=== PATIENT | female | born 1985 | race Caucasian/White ===

== ENCOUNTER 2020-07-25 15:16 | Emergency (ER) | payer MEDICAID, SELFPAY ==
[2020-07-25 15:18] VITALS: BP 121/92; PULSE 111; RESP 20; TEMP 36.7; O2SAT 998; BMI 39.5
--- NOTE | 2020-07-25 15:34 | PC.NURSE ---
PT HAVING INCREASED LOWER BACK PAIN FOR 2 DAYS AFTER TRYING SOME NEW BACK STRETCHING KNEE TO CHEST TECHNIQUES. PT STATES SHE HAD A CORTIZONE SHOT 2 WEEKS AGO.
[2020-07-25] MEDS: Lidocaine 4 % Patch ADH..PATCH 1 PATCH TRANSDERMA (16:11)
[2020-07-25] MEDS: Cyclobenzaprine HCl 10 MG TABLET PO (16:11)
[2020-07-25] MEDS: Ketorolac Tromethamine 30 MG/ML VIAL IM (16:12)
--- NOTE | 2020-07-25 16:48 | ED_ITS ---
HPI - Back Pain/Injury General Chief Complaint: Back Pain/Injury Stated Complaint: back pain Time Seen by Provider: 07/25/20 16:01 Source: patient Mode of arrival: ambulatory Limitations: no limitations History of Present Illness HPI Narrative: 34-year-old female with history of obesity and history of chronic low states the past 2 days before she feels that existed back pain is most in right lower paraspinous muscle region the lumbar that this similar to her previous episode. Denies any GI symptoms has tried some warm compresses otherwise no OTC meds. Denies any recent illness, fall, injury, fever, headac he, neck pain, chest pain, shortness of breath, abdominal pain, lower extremity pain or swelling. MD elicited complaint: back pain Pertinent past history: prior back pain Onset (ago): day(s) Timing: intermittent Severity: moderate Similar Symptoms Previously: Yes Quality: aching Location: lumbar spine Radiation: none Exacerbating factors: movement Relieving factors: immobilization Associated symptoms: denies other symptoms Treatments prior to arrival: cold therapy and heat therapy Work related injury: No Related Data Previous Rx's Medication Instructions Recorded cyclobenzaprine 5 mg PO TID PRN #14 tab 07/25/20 ibuprofen 800 mg PO Q8H PRN #14 tab 07/25/20 Allergies Allergy/AdvReac Type Severity Reaction Status Date / Time No Known Allergies Allergy Verified 07/25/20 15:22 [No Known Allergies*] Review of Systems Review of Systems: Constitutional: No Weight loss, No Fever, No Chills, No Night Sweats, No Fatigue, No Malaise ENT/Mouth: No Hearing loss, No Ear Pain, No Nasal Congestion, No Sinus Pain, No Hoarseness, No sore throat, No Rhinorrhea, No Swallowing Difficulty Eyes: No Eye Pain, No Swelling, No Redness, No Foreign Body, No Discharge, No Vision Changes Cardiovascular: No Chest Pain, No SOB, No Dyspnea on Exertion, No Orthopnea, No Edema, No Palpitations Respiratory: No Cough, No Sputum, No Wheezing, No Smoke Exposure, No Dyspnea Gastrointestinal: No Nausea, No Vomiting, No Diarrhea, No Constipation, No abdominal Pain, No Hematochezia, No Melena Genitourinary: no irregular bleeding, No Dysuria, No Urinary Frequency, No Hematuria, No Urinary Incontinence, No Urgency, No Flank Pain, No Urinary Flow Changes, No Hesitancy Musculoskeletal: No joint pain, No Myalgias, No Joint Swelling, + back pain as noted Skin: No Skin Lesions, No rash Neuro: No Weakness, No Numbness, No Paresthesias, No Loss of Consciousness, No Dizziness, No Headache Psych: No Social Issues Heme/Lymph: No Bruising, No Bleeding,No Lymphadenopathy Endocrine: No Polyuria, No Polydipsia, No Temperature Intolerance Yes all other systems are reviewed and are negative [facility] Past Medical History Medical History Anxiety Asthma Back pain Depression Hypothyroid Social History Social History Advance Directives: No Advance Directives Information Provided: No Physical Exam Vital Signs: Vital Signs: Last Vital Signs Temp 98.0 F 07/25/20 15:18 Pulse 111 H 07/25/20 15:18 Resp 19 07/25/20 16:52 BP 121/92 H 07/25/20 15:18 Pulse Ox 998 H 07/25/20 15:18 Body Mass Index 39.5 Reviewed Heart rate was noted to be 111 triage upon arrival to room her heart rate is 82 Also pulse oximeter reading of 98 in triage this is documented in air her actual reading is 99%. Const: Other: Smiling in no acute distress, laying in lateral recumbent position left side. General: cooperative and healthy appearing; No acute distress or intoxicated appearing Nutritional Appearance: average body habitus Orientation/consciousness: patient oriented x3 HENMT: Head: Yes normal to inspection Ears: hearing grossly normal bilaterally Eyes: General: appearance normal, both eyes and all related structures Visual Sanchez: normal visual sanchez by confrontation Neck: Neck: Yes normal visual inspection, No positive Brudzinski's sign, No positive Kernig's sign and No tender Thyroid: Thyroid normal Chest: Chest palpation & inspection: normal inspection of the chest Resp: Effort & Inspection: normal respiratory effort Auscultation: clear to auscultation bilaterally Cardio: Jugular venous distension: no JVD Rate: regular rate Rhythm: regular rhythm Heart sounds: S1 normal heart sound present and S2 normal heart sound present GI: Inspection: Yes normal to inspection Percussion: Yes normal to percussion Auscultation: normal bowel sounds : General: Yes no CVA tenderness Back/Spine/Pelvis: Back: no CVA tenderness Thoracic/Lumbar Spine: paraspinal muscle tenderness (Lumbar paraspinous muscle region, no rash) on the right Skin: General skin exam: no rashes or lesions noted Neuro: General: patient oriented x3 Extrem: General: Yes normal to inspection Course Course Course Narrative: Feels better after IM Toradol, topical lido patch lidocaine and p.o. Flexeril. No low back pain red flags. Will discharge home with short course of NSAIDs, muscle relaxant and close follow-up. Patient feels better now out of bed ambulatory with steady gait. Stable for discharge. Discharge Plan Discharge Clinical Impression: Strain of lumbar region Qualifiers: Encounter type: initial encounter Qualified Code(s): S39.012A - Strain of muscle, fascia and tendon of lower back, initial encounter Patient Disposition: Home, Self-Care Instructions: Low Back Strain (ED) Additional Instructions: Warm compresses Gentle stretching Ibuprofen as prescribed Muscle relaxant as prescribed; do not drink alcohol or drive while taking this medication Return if any concerns or worsening symptoms otherwise Follow home care instructions provided Follow-up with primary care doctor discussed Thank you Prescriptions: New ibuprofen 800 mg tablet 800 mg PO Q8H PRN (Reason: pain) Qty: 14 RF: 0 cyclobenzaprine 5 mg tablet 5 mg PO TID PRN (Reason: muscle spasm) Qty: 14 RF: 0 Referrals: Enoc Calabrese MD [Primary Care Provider] - 1 week Interventions: ED Discharge Assessment Last Done: 07/25/20 16:57 Discharge Date/Time: 07/25/20 16:58
[2020-07-25 16:52] VITALS: RESP 19
== END 2020-07-25 16:58 | disposition home or self-care (01) ==
PROVIDERS: Emergency Provider Emergency Medicine; PCP Pediatrics
DX: S39.012A Strain of muscle, fascia and tendon of lower back, initial encounter (principal); X50.0XXA Overexertion from strenuous movement or load, initial encounter; Y93.B9 Activity, other involving muscle strengthening exercises; Y92.019 Unspecified place in single-family (private) house as the place of occurrence of the external cause; Y99.9 Unspecified external cause status
CPT/HCPCS: 96372; 99284; J1885

== ENCOUNTER → 2022-04-19 12:55 | Outpatient (REF) | payer OTHER, MEDICAID, SELFPAY | LOC: HO.SL 12:55 | PROVIDERS: PCP Family Medicine; Visit Provider Psychiatry & Neurology Neurology | DX: G47.33 Obstructive sleep apnea (adult) (pediatric) (principal) | CPT/HCPCS: 95806 ==

== ENCOUNTER 2023-03-23 10:08 | Emergency (ER) | payer OTHER, SELFPAY ==
--- NOTE | ~2023-03-23 | CT_ITS ---
EXAMINATION: CT ABDOMEN AND PELVIS WITH CONTRAST CLINICAL INFORMATION: Left lower quadrant pain COMPARISON: July 21, 2017 TECHNIQUE: Multidetector volumetric images were obtained from the superior aspect of the liver through the pubic symphysis following administration 85 mL of Omnipaque 350 intravenous contrast. Sagittal and coronal reformatted images were obtained on the technologist's workstation. Oral contrast: No This CT examination was performed using dose optimization techniques as appropriate, variously including the following: *Automated exposure control *Adjustment of mA and/or kV according to patient size (this includes techniques or standardized protocols for targeted exams where dose is matched to indication/reason for exam; i.e. extremities or head) *Use of iterative reconstruction technique DLP: 905 mGy-cm FINDINGS: LUNG BASES: The visualized lung bases are unremarkable. No pleural or pericardial effusion. LIVER, GALLBLADDER, AND BILIARY TREE: The liver is normal in size, shape, and attenuation. No focal solid hepatic lesion or biliary ductal dilatation is present. There are a few 5 mm or smaller low densities within the liver consistent with cysts. The gallbladder appears unremarkable without abnormal filling defects or wall thickening. No pericholecystic fluid. PANCREAS: Unremarkable. No abnormal mass or peripancreatic inflammatory change. SPLEEN: Unremarkable. ADRENAL GLANDS: Unremarkable. KIDNEYS AND URETERS: The kidneys are normal in size, shape, and attenuation. No hydronephrosis or hydroureter seen. No perinephric stranding. There is a 10 x 6 mm nonobstructing calculus adjacent to a scar within the upper pole of the right kidney. This lies approximately 12 cm from the posterior axillary line and has a Hounsfield unit reading of greater than 500. BLADDER: Unremarkable. GASTROINTESTINAL TRACT: No dilated loops of large or small bowel. No free air or free fluid. There is a small hiatal hernia. There is a moderate stool burden within the colon. No pericolonic inflammatory changes seen. The appendix appears unremarkable. ABDOMINAL WALL: No significant hernia is appreciated. LYMPH NODES: No lymphadenopathy appreciated. VASCULAR: No significant abnormality. 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 PELVIC VISCERA: Unremarkable. OSSEOUS STRUCTURES: No suspicious destructive bony lesions identified. CT/CT abdomen pelvis w IV con IMPRESSION: No evidence of obstructive uropathy. No evidence of bowel ileus or obstruction. Moderate colonic stool burden. Fleischner guidelines were followed.
[2023-03-23 10:25] VITALS: BP 133/84; PULSE 65; RESP 16; TEMP 36.6; O2SAT 98; BMI 40.8
[2023-03-23 10:45] LABS: MANUAL DIFF FLAG NO
[2023-03-23 10:46] LABS: Basophils Absolute Auto 0.1 X10*3/uL (0.0-0.2); Basophils Percent Auto 0.6 % (0-2); Eosinophils Absolute Auto 0.1 X10*3/uL (0.0-0.4); Eosinophils Percent Auto 1.2 % (0-4); Hematocrit 45.6 % (37.0-47.0); Hemoglobin 15.3 g/dl (12.0-16.0); Imm Gran Abs Auto 0.03 X10*3/uL (0.00-0.03); Imm Gran Pct Auto 0.3 % (0.0-0.4); Lymphocytes Absolute Auto 3.4 X10*3/uL (1.2-4.9); Lymphocytes Percent Auto 32.8 % (20-40); Mean Corpuscular HGB Conc 33.6 g/dl (31.0-35.0); Mean Corpuscular Hemoglobin 28.8 pg (27.0-33.0); Mean Corpuscular Volume 85.9 fL (80.0-98.0); Mean Platelet Volume 8.7 fL (9.4-12.3); Monocytes Absolute Auto 0.4 X10*3/uL (0.1-1.2); Monocytes Percent Auto 3.9 % (2-11); Neutrophils Absolute Auto 6.4 x10*3/uL (2.0-8.3); Neutrophils Percent Auto 61.2 % (45-73); Platelet Count 433 X10*3/uL (160-400); Red Blood Count 5.31 X10*6/uL (4.20-5.50); Red Cell Distribution Width 13.2 % (11.0-16.0); White Blood Count 10.4 X10*3/uL (4.8-10.8)
[2023-03-23 11:00] LABS: Alanine Aminotransferase 20 U/L (0-31); Albumin Level 4.2 g/dL (3.5-5.0); Alkaline Phosphatase 77 U/L (39-117); Anion Gap 12 (12-20); Aspartate Amino Transferase 14 U/L (5-31); Bilirubin Total 0.4 mg/dL (0.0-1.0); Blood Urea Nitrogen 16 mg/dL (9-16); Calcium 9.1 mg/dL (8.4-10.2); Carbon Dioxide 24 mmol/L (22-29); Chloride 106 mmol/L (96-108); Creatinine Clr Calc Pharmacy 116.8; Estimated Glomerular Filt Rate > 60; Glucose Random 108 mg/dL (60-115); Lipase 19 U/L (8-78); Potassium 3.6 mmol/L (3.3-5.1); Sodium 138 mmol/L (135-145); Total Protein 7.4 g/dL (6.5-8.0)
[2023-03-23 11:17] VITALS: BP 126/81; PULSE 72; RESP 19; TEMP 36.8; O2SAT 97
--- NOTE | 2023-03-23 11:23 | ED_ITS ---
HPI - Abdominal Pain General Chief Complaint: General Medical Stated Complaint: L Side Pain Time Seen by Provider: 03/23/23 11:22 Source: patient Mode of arrival: ambulatory Limitations: no limitations History of Present Illness HPI narrative: 37 yo female no sig PMH other than hysterectomy for DUB here with c/o LLQ pain poor PO intake intermittent chills since . She has never had this before. Stool more thick than usual and different. No recent travel or abx MD elicited complaint: abdominal pain Pertinent past history: none Onset (ago): day(s) (5) Pain Consistency: constant Location: LLQ Severity: moderate Quality: aching Radiation: none Migration to: no migration Exacerbating factors: eating and movement Relieving factors: nothing Associated symptoms: nausea and chills Related Data Previous Rx's Medication Instructions Recorded cyclobenzaprine 5 mg tablet 5 mg PO TID PRN muscle spasm #14 07/25/20 tabs ibuprofen 800 mg tablet 800 mg PO Q8H PRN pain #14 tabs 07/25/20 ondansetron 4 mg disintegrating 4 mg PO Q8H PRN nausea and 03/23/23 tablet vomiting #20 tabs Allergies Allergy/AdvReac Type Severity Reaction Status Date / Time No Known Allergies Allergy Verified 03/23/23 10:25 [No Known Allergies*] Review of Systems Review of Systems Constitutional : No Weight loss, No Fever, No Chills ENT/Mouth : No sore throat, No Rhinorrhea Eyes: No Swelling, No Redness Cardiovascular : No Chest Pain, No SOB, NoEdema Respiratory : No Cough, No Sputum, No Wheezing Gastrointestinal : Positive Nausea, no Vomiting, no Diarrhea, positive abdominal Pain, No Hematochezia, No Melena Genitourinary : No Dysuria, No Urinary Frequency, No Hematuria, No Urgency Musculoskeletal : No joint pain, No Myalgias, No Joint Swelling Skin : No Skin Lesions, No rash Neuro : No Weakness, No Numbness, No Dizziness, No Headache Psych : No Anxiety/Panic, No Depression Heme/Lymph: No Bruising, No Lymphadenopathy Endocrine : No Polyuria, No Polydipsia All other systems reviewed and are negative. [facility] Past Medical History Attestation statement: The following information was validated with the patient. Medical History Back pain Asthma Anxiety Depression Hypothyroid Social History Social History (Updated 03/23/23 @ 11:37 by Adia Guajardo DO) Patient Tobacco Use Status: Never used Tobacco Smoked in Last 30 Days: No Use of substances other than those prescribed or required for medical reasons: No Advance Directives: No Advance Directives Information Provided: No Patient : No Physical Exam ED Vital Signs: Vital Signs - 24 hr 03/23/23 10:25 03/23/23 11:17 03/23/23 13:59 Temperature 97.9 F 98.3 F 98.0 F Pulse Rate 65 72 67 Respiratory Rate 16 19 16 Blood Pressure 133/84 126/81 129/79 Pulse Oximetry 98 97 97 Oxygen Delivery Method Room Air Room Air Room Air BMI result Body Mass Index 40.8 Appearance: Alert. Oriented X3. No acute distress. Eyes: Pupils equal, round and reactive to light. ENT: Pharynx normal. Neck: Normal inspection. Neck supple. CVS: Normal heart rate and rhythm. Pulses normal. Respiratory: No respiratory distress. Breath sounds normal. Abdomen: Soft and moderate LLQ pain no rebound Skin: Skin warm and dry. Normal skin color. Normal skin turgor. Extremities: No lower extremity edema. No calf ttp Neuro: Oriented X 3. No motor deficit. No sensory deficit. Medical Decision Making Medical Decision Making [facility] Narrative: 37 yo female with prior hysterectomy here with LLQ pain and chills poor PO intake since Joel no fevers at this time suspect possible renal colic, diverticulitis, ovarian lesion will obtain labs, UA, hydrate, IV medications, CT scan to assess for pathology. Differential Diagnosis Differential Diagnoses: The differential diagnosis associated with the presentation includes renal colic, diverticulitis, ovarian lesion Admission/Observation Consideration of admission/observation: Escalation of care including admission/observation considered not toxic, labs and UA reassuring - constipation and renal stone (not cause of pain) Lab Data [facility] Lab Attestation statement: I reviewed the patient's lab results. 03/23/23 10:39 03/23/23 10:39 Labs: Lab Results 03/23/23 03/23/23 03/23/23 Range/Units 10:36 10:39 12:56 WBC 10.4 (4.8-10.8) X10*3/uL RBC 5.31 (4.20-5.50) X10*6/uL Hgb 15.3 (12.0-16.0) g/dl Hct 45.6 (37.0-47.0) % MCV 85.9 (80.0-98.0) fL MCH 28.8 (27.0-33.0) pg MCHC 33.6 (31.0-35.0) g/dl RDW 13.2 (11.0-16.0) % Plt Count 433 H (160-400) X10*3/uL MPV 8.7 L (9.4-12.3) fL Immature Gran % (Auto) 0.3 (0.0-0.4) % Neut % (Auto) 61.2 (45-73) % Lymph % (Auto) 32.8 (20-40) % [place] % (Auto) 3.9 (2-11) % Eos % (Auto) 1.2 (0-4) % Baso % (Auto) 0.6 (0-2) % Lymph # (Auto) 3.4 (1.2-4.9) X10*3/uL [place] # (Auto) 0.4 (0.1-1.2) X10*3/uL Eos # (Auto) 0.1 (0.0-0.4) X10*3/uL Baso # (Auto) 0.1 (0.0-0.2) X10*3/uL Abs Immat Gran (auto) 0.03 (0.00-0.03) X10*3/uL Absolute Neuts (auto) 6.4 (2.0-8.3) x10*3/uL Absolute Nucleated RBC 0.000 (0.0-0.012) X10*3/uL Nucleated RBC % (auto) 0.0 (0.0-0.2) /100WBC Sodium 138 (135-145) mmol/L Potassium 3.6 (3.3-5.1) mmol/L Chloride 106 (96-108) mmol/L Carbon Dioxide 24 (22-29) mmol/L Anion Gap 12 (12-20) BUN 16 (9-16) mg/dL Creatinine 0.84 (0.5-1.4) mg/dL Estim Creat Clear Calc 116.8 Estimated GFR > 60 Random Glucose 108 (60-115) mg/dL Calcium 9.1 (8.4-10.2) mg/dL Total Bilirubin 0.4 (0.0-1.0) mg/dL AST 14 (5-31) U/L ALT 20 (0-31) U/L Alkaline Phosphatase 77 (39-117) U/L Total Protein 7.4 (6.5-8.0) g/dL Albumin 4.2 (3.5-5.0) g/dL Lipase 19 (8-78) U/L Beta HCG, Quant < 2 mIU/mL Urine Color Yellow Urine Appearance Clear Urine pH 6.0 (5.0-9.0) Ur Specific [place] 1.015 (1.005-1.025) Urine Protein Negative (Neg-Trace) mg/dL Urine Glucose (UA) Negative (Negative) mg/dL Urine Ketones Negative (Negative) mg/dL Urine Blood Negative (Negative) Urine Nitrite Negative (Negative) Ur Leukocyte Esterase Negative (Negative) Urine Test NEGATIVE (NEGATIVE) Influenza Type A (PCR) NEGATIVE (Negative) Influenza Type B (PCR) NEGATIVE (Negative) RSV RNA Qual (PCR) NEGATIVE (Negative) SARS-CoV-2 RNA (RT-PCR) NEGATIVE (Negative) Independent Interpretation I performed an independent interpretation of an: CT Scan (constipation) Radiology Impression Discussion of test interpretation with radiology: I have reviewed the radiologist's reading. Independent Historian Clinical information obtained from an independent historian. History obtained from or confirmed by: Spouse Prescription Management I considered prescription management with: Other Medications Administered Discontinued Medications Generic Name Dose Route Start Last Admin Trade Name Freq PRN Reason Stop Dose Admin Sodium Chloride 1,000 mls @ 999 mls/hr 03/23/23 11:30 03/23/23 12:05 Ns IV 03/23/23 12:30 999 mls/hr .Q1H1M JORGE Administration Iohexol 100 ml 03/23/23 12:57 03/23/23 12:58 Iohexol 350 Mg/Ml 100 Ml Infus..Btl IV 03/23/23 12:58 85 ml ONCE ONE Administration Ketorolac Tromethamine 15 mg 03/23/23 11:29 03/23/23 12:05 Ketorolac Tromethamine 15 Mg/Ml Vial IVPUSH 03/23/23 11:30 15 mg ONCE ONE Administration Ondansetron HCl 4 mg 03/23/23 11:29 03/23/23 12:05 Ondansetron Hcl 4 Mg/2 Ml Vial IVPUSH 03/23/23 11:30 4 mg ONCE ONE Administration Discharge Plan Discharge Clinical Impression: Calculus, renal Constipation Qualifiers: Constipation type: unspecified constipation type Qualified Code(s): K59.00 - Constipation, unspecified Abdominal pain Qualifiers: Abdominal location: left lower quadrant Qualified Code(s): R10.32 - Left lower quadrant pain Patient Disposition: Home, Self-Care Instructions: Constipation (ED), Kidney Stones (ED), Abdominal Pain (ED) Additional Instructions: your labs and urine are normal, no covid/flu/rsv your CT scan shows moderate constipation it shows incidental finding of R sided kidney stone but this is not the cause of your pain - stay hydrated will refer to urology return for fevers, vomiting, inability to eat or drink or any other concerns. for constipation start on over the counter colace 100mg twice a day for one week, senna 8.6mg nightly for one week, can add miralax one capful daily if no results in 3 days. Prescriptions: New ondansetron 4 mg tablet,disintegrating 4 mg PO Q8H PRN (Reason: nausea and vomiting) Qty: 20 0RF No Action ibuprofen 800 mg tablet 800 mg PO Q8H PRN (Reason: pain) Qty: 14 0RF cyclobenzaprine 5 mg tablet 5 mg PO TID PRN (Reason: muscle spasm) Qty: 14 0RF Referrals: Marcelo Amador MD [Physician] - (call to schedule appointment ) Stand Alone Forms: Work/School Release
[2023-03-23 11:32] LABS: Influenza A PCR NEGATIVE (Negative); Influenza B PCR NEGATIVE (Negative); Resp Syncy Virus RNA Qual PCR NEGATIVE (Negative); SARS COV2 PCR INHOUSE NEGATIVE (Negative)
[2023-03-23] MEDS: ondansetron HCL 4 MG/2 ML VIAL IVPUSH (12:05)
[2023-03-23] MEDS: 0.9 % Sodium Chloride 1,000 ML 999 ML IV (12:05)
[2023-03-23] MEDS: Ketorolac Tromethamine 15 MG/ML VIAL IVPUSH (12:05)
--- NOTE | 2023-03-23 12:07 | PC.NURSE ---
22gIV placed in the right hand - medication administered per provider order. pt awaiting to go to CT at this time. resting comfortably in no apparent distress. no sob/wob noted. respirations even and unlabored. family bedside. call john placed within reach.
[2023-03-23 12:20] LABS: HCG Quantitative < 2 mIU/mL
--- NOTE | 2023-03-23 12:35 | PC.NURSE ---
pt to CT at this time.
[2023-03-23] MEDS: iohexoL 350 MG/ML 100 ML INFUS..BTL IV (12:58)
--- NOTE | 2023-03-23 13:00 | PC.NURSE ---
pt returned from CT at this time. urine obtained/sent to lab. pt verbalizes pain level has now subsided post medication administration. resting comfortably in no apparent distress. pt awaiting results from CT. respirations remain even and unlabored. call john placed within reach.
[2023-03-23 13:08] LABS: Appearance Urine Clear; Color Urine Yellow; Glucose Urine UA Negative (Negative); Leukocyte Esterase Urine Negative (Negative); Nitrite Urine Negative (Negative); Specific Gravity - Urine 1.015 (1.005-1.025); Urine Blood Negative (Negative); Urine Ketones Negative (Negative); Urine Protein Negative (Neg-Trace)
[2023-03-23 13:09] LABS: UPreg QC Valid YES; Urine Pregnancy NEGATIVE (NEGATIVE)
[2023-03-23 13:59] VITALS: BP 129/79; PULSE 67; RESP 16; TEMP 36.7; O2SAT 97
== END 2023-03-23 15:19 | disposition home or self-care (01) ==
PROVIDERS: Emergency Provider Emergency Medicine; PCP Family Medicine
DX: N20.0 Calculus of kidney (principal); K59.00 Constipation, unspecified; R10.32 Left lower quadrant pain; Z20.822 Contact with and (suspected) exposure to COVID-19; Z20.828 Contact with and (suspected) exposure to other viral communicable diseases
CPT/HCPCS: 0241U; 36415; 74177; 80053; 81003; 81025; 83690; 84702; 85025; 96361; 96374; 96375; 99284; J1885; J2405; Q9967

== ENCOUNTER 2025-01-08 12:31 | Outpatient (AMB) | payer SELFPAY ==
[2025-01-08 12:47] VITALS: BP 118/76; PULSE 83; TEMP 36.7; O2SAT 97; BMI 37.3
--- NOTE | 2025-01-08 12:47 | AM.OFFWIN_ITS ---
Intake Vital Signs 01/08/25 12:47 Height 5 ft 6 in Weight 231 lb BMI 37.3 BP 118/76 Blood Pressure Location Lt brachial Position Sitting Pulse 83 Pulse Source Pulse Oximeter Temp 98.0 F Temp Source Oral Pulse Oximetry (%) 97 Intake Visit Reasons: EP Left eye soreness pt has no car Patient Tobacco Use Status: Never used Tobacco Allergies No Known Allergies (No Known Allergies*) Allergy (Verified 01/08/25 12:47) Do you need a note to return to daycare/school/sports/work: Yes HPI HPI Comments History of Present Illness Details 39 y/o Female patient who presents to [facility] with c/o Left eyelid swelling and redness for 3 days now. Reports applying Ice/heat packs and taking Benadrly/Claritin which has helped with swelling going down. Denies eye pain or vision changes. Pt does have h/o Seasonal allergies. [facility] Medical History (Updated 01/08/25 @ 13:45 by Conchita Ludwig NP) Hordeolum externum left upper eyelid Back pain Asthma Anxiety Depression Hypothyroid Social History (Updated 03/23/23 @ 11:37 by Adia Guajardo DO) Patient Tobacco Use Status: Never used Tobacco Review of Systems Const All systems reviewed & are unremarkable except as noted in HPI and below Physical Exam Vital Signs: Last Vital Signs Temp 98.0 F 01/08/25 12:47 Pulse 83 01/08/25 12:47 BP 118/76 01/08/25 12:47 Pulse Ox 97 01/08/25 12:47 BMI result Body Mass Index 37.3 Const General: no acute distress Nutritional Appearance: overweight Orientation/consciousness: patient oriented x3 HEENT Head: Yes normocephalic Ears: external ears normal and TM abnormal with fluid behind the TM bilateral Resp Effort & Inspection: normal respiratory effort Auscultation: clear to auscultation bilaterally Cardio Heart sounds: S1 normal heart sound present and S2 normal heart sound present Neuro General: patient oriented x3, gait normal and moves all extremities Psych Speech and movement: Normal speech and movement present Assessment & Plan Assessment & Plan (1) Hordeolum externum left upper eyelid: Code(s): H00.014 - Hordeolum externum left upper eyelid Plan: Apply warm compresses to the affected eye for 5-10 minutes several times a day to promote drainage and reduce inflammation. Avoid rubbing or touching the stye. Wash your hands frequently and clean your eyelids gently with a mild soap solution. Do not wear makeup or contact lenses until the stye has completely healed. Medications: New ciprofloxacin HCl 0.3% Put 1-2 drops in the affected eye every 2hr up to 8 times per day for 2 days; then 4 times per day for 5 days. 5 mL 0RF H00.014 - Hordeolum externum left upper eyelid Discontinued cyclobenzaprine Discontinued Reason: Patient Completed Course 5 mg PO TID PRN 14 tabs 0RF muscle spasm ibuprofen Discontinued Reason: Patient Completed Course 800 mg PO Q8H PRN 14 tabs 0RF pain ondansetron Discontinued Reason: Patient Completed Course 4 mg PO Q8H PRN 20 tabs 0RF nausea and vomiting Coding Level of Care Code Est Pt Level 4 (26545) Diagnoses Hordeolum externum left upper eyelid H00.014 Time Spent (min) 20
--- OUTSIDE RECORDS SUMMARY | 2025-01-08 15:41 | XMS_ITS | Encounter Summary ---
Author Organization [facility] Address [address] [place] [id number] Phone Care Team Providers Care Cycling Instructor Name Role Phone Nataliya Pelaez Ann AIRPORT UTILITY WORKER Unavailable [phone] Jaki Waterman AIRPORT UTILITY WORKER Unavailable Steve Tuttle HOT MILL OBSERVER Unavailable Doroteo Marina MD Unavailable Will Kapadia MD Unavailable Wiliam Rico MD Unavailable Unavailable Enoc Calabrese MD Unavailable [phone] Enoc Calabrese MD Primary Care Provider [phone] Enoc Calabrese MD Unavailable [phone] Encounter Details Date Type Department Care Team (Late st Contact Info) Description 08/16/2017 Ancillary Orders [facility], X-Ray - [address] [id number] Deonna Glynn, AIRPORT UTILITY WORKER [address] [place] [address] Lumbar radiculopathy Social History Tobacco Use Types Packs/Day Years Used Date Smoking Tobacco: Every Day Cigarettes 0.5 18 Smokeless Tobacco: Never Comments Unknown Sex and Gender Information Value Date Recorded Sex Assigned at Female 2021 8:45 PM EDT Legal Sex Female 9:15 PM EDT Gender Identity Female 2021 8:45 PM EDT Sexual Orientation Straight 2021 8: 45 PM EDT documented as of this encounter Plan of Treatment Not on file documented as of this encounter Results * XR LUMBOSACRAL SPINE 4 OR MORE VIEWS (08/16/2017 4:03 PM EDT) Anatomical Region Laterality Modality L-spine Radiographic Madeleine ging 08/16/2017 4:16 PM EDT Impressions 08/16/2017 4:17 PM EDT Unremarkable evaluation of the lumbar spine. No explanation for low back pain or left leg radiation pain evident. S/S: Chronic low back pain, pain radiating down left leg POS - [id number] Narrative 08/16/2017 4:17 PM EDT COMPARISON: CT abdomen pelvis October 03, 2016 FINDINGS: AP, lateral, both oblique, and coned-down views of the lumbar spine are obtained. There is preservation of disc space height. No compression fracture or subluxation is seen. The pedicles appear intact. On oblique views there are no pars defects seen. The SI joints are unremarkable. There is negligible facet arthropathy. Procedure Note Brice Durant MD - 08/16/2017 COMPARISON: CT abdomen pelvis October 03, 2016 FINDINGS: AP, lateral, both oblique, and coned-down views of the lumbar spine areobtained. There is preservation of disc space height. No compression fracture or subluxation is seen. The pedicles appear intact. On oblique views there are no pars defects seen. The SI joints are unremarkable. There is negligible facet arthropathy. IMPRESSION: Unremarkable evaluation of the lumbar spine. No explanation for low backpain or left leg radiation pain evident. S/S: Chronic low back pain, pain radiating down left leg POS - [id number] Deonna Glynn AIRPORT UTILITY WORKER IMG XR SPINE Fin al Result documented in this encounter Visit Diagnoses Diagnosis Lumbar radiculopathy Thoracic or lumbosacral neuritis or radiculitis, unspecified Lumbar radiculopathy Thoracic or lumbosacral neuritis or radiculitis, unspecified documented in this encounter Additional Health Concerns Infection Onset Date Last Indicated Resolved Time MRSA Comment:Import to add expiration date of 06/11/2021 per Infection Control as part of historical infection status reconciliation 12/12/2007 12/12/2007 06/12/19 22 1:35 AM EDT documented as of this encounter Care Teams Cycling Instructor Relationship Specialty Start Date End Date Enoc Calabrese MD [address] [place] [address], [address] [place] [address] PCP - General 01/08/17 04/21/24 Nataliya Pelaez NP [address] [place] [address] [address] [place] [address] Historical LMR Provider 01/08/17 2 Jaki Waterman, NORMA [address] [place] [address] 2_[place] [address] [email or web address] Historical LMR Provider 01/08/17 04/02/21 Steve Tuttle, HOT MILL OBSERVER [address] [place] [address], [address] [place] [address] Historical LMR Provider 01/08/17 04/02/21 Doroteo Marina MD [address] [place] [address], [address] [place] [address] Historical LMR Provider 01/08/17 04/02/21 Will Kapadia MD [address] [place] [address], [address] [place] [address] [email or web address] Historical LMR Provider 01/08/17 04/02/21 Wiliam Rico MD Historical LMR Provider 01/08/17 04/02/21 Enoc Calabrese MD [address] [place] [address], [address] [place] [address] [email or web address] Historical LMR Provider 01/08/17 Enoc Calabrese MD [address] [place] [address], [address] [place] [address] [email or web address] Insurance Assigned Provider 07/27/18 documented as of this encounter Additional Source Comments The information contained in this document represents components of the legal health record. It is not the complete legal health record.[facility]
--- OUTSIDE RECORDS SUMMARY | 2025-01-08 15:41 | XMS_ITS | Clinical Summary ---
Author Organization [facility] [address] [place] [address] Address [address] [place] [address] Phone Care Team Providers Care Kiln Tester Name Role Phone Jacek Hogan MD Primary Care Pr ovider Allergies Active Allergy Reactions Criticality Noted Date Comments Other 02/04/2021 Seasonal Allergies Medications multivitamin with minerals (HAIR,SKIN AND NAILS ORAL) Take by mouth daily. Active mv-min/iron/fol ic/calcium/vitK (WOMEN'S MULTIVITAMIN ORAL) Take by mouth daily. Active tiZANidine (ZANAFLEX) 4 mg tablet Take 1 Tablet by mouth every evening. 023 Active albuterol HFA (PROAIR HFA ; PROVENTIL HFA ; VENTOLIN HFA) 90 mcg/actuation inhalerIndicati ons:Mild persistent asthma without complication Inhale 2 puffs by mouth every 6 (six) hours if needed for wheezing. 18 g 1 025 Active loratadine (CLARITIN) 10 mg tabletIndicatio ns:Non-seasonal allergic rhinitis due to other allergic trigger Take 1 tablet (10 mg total) by mouth 1 (one) time each day. 90 tablet 1 025 Active ketotifen fumarate (ZADITOR) 0.035 % ophthalmic solutionIndicat ions:Non-season al allergic rhinitis due to other allergic trigger Administer 1 drop into both eyes 2 (two) times a day. 15 mL 1 025 Active fluticasone propion-salmete roL (AIRDUO RESPICLICK) 113-14 mcg/actuation aerosol powdr breath activated inhalerIndicati ons:Mild persistent asthma without complication Inhale 1 puff by mouth 2 (two) times a day. Rinse mouth with water after use to reduce aftertaste and incidence of candidiasis. Do not swallow. 1 each 1 Active levothyroxine (SYNTHROID, LEVOTHROID) 75 mcg tabletIndicatio ns:Hypothyroidi sm due to Montse thyroiditis levothyroxine 75 mcg every morning Sunday through Sunday and 150 mcg on Sundays 102 tablet 1 Active cyanocobalamin (VITAMIN B-12) 1,000 mcg tablet Take 1 Tablet by mouth daily for 180 days. 022 2024 Discontinued levothyroxine (SYNTHROID, LEVOTHROID) 75 mcg tabletIndicatio ns:Hypothyroidi sm due to Montse thyroiditis levothyroxine 75 mcg every morning Sunday through Sunday and 150 mcg on Sundays 94 tablet 025 2024 Discontinued(R eorder) Active Problems Problem Noted Date Diagnosed Date Insomnia 03/09/2023 Allergic rhinitis 09/15/2022 Assessment & Plan (04/21/2024 3:02 PM EST): Continue current medications Orders: loratadine (CLARITIN) 10 mg tablet; Take 1 tablet (10 mg total) by mouth 1 (one) time each day. ketotifen fumarate (ZADITOR) 0.035 % ophthalmic solution; Administer 1 drop into both eyes 2 (two) times a day. Gastroesophageal reflux disease without esophagi tis 09/15/2022 Assessment & Plan (04/21/2024 3:02 PM EST): Continue omeprazole as needed. Symptoms are well-controlled Anxiety and depression 06/16/2022 Degenerative joint disease (DJD) of lumbar spine 06/16/2022 Overview (12/28/2023): L spine MRI 12/27/21: No evidence of demyelinating disease.Degenerative changes, greater at the lower two levels. No evidence of nerve root impingement. No high- grade spinal canal stenosis. Assessment & Plan (04/21/2024 3:02 PM EST): Continue tizanidine PRN ad physiatry follow up defers PCV vaccine or now. Declines COVID vaccine. Received flu vaccine in december Migraine 06/16/2022 Assessment & Plan (04/21/2024 3:02 PM EST): She no longer feels that she needs topiramate for headaches. Headaches are well-controlled with smoking marijuana as needed. She obtains the marijuana from a dispensary Chronic low back pain 03/14/2022 Overview (12/28/2023): Last Assessment & Plan: Patient would likely benefit from breast reduction. Referral to plastic surgery placed today. Asthma 06/13/2021 Assessment & Plan (04/21/2024 3:02 PM EST): Continue air duo and albuterol as needed Orders: albuterol HFA (PROAIR HFA ; PROVENTIL HFA ; VENTOLIN HFA) 90 mcg/actuation inhaler; Inhale 2 puffs by mouth every 6 (six) hours if needed for wheezing. fluticasone propion-salmeteroL (AIRDUO RESPICLICK) 113-14 mcg/actuation aerosol powdr breath activated inhaler; Inhale 1 puff by mouth 2 (two) times a day. Rinse mouth with water after use to reduce aftertaste and incidence of candidiasis. Do not swallow. Hyperlipidemia 06/13/2021 Assessment & Plan (04/21/2024 3:02 PM EST): Will update labs. Orders: Lipid panel with reflex to direct LDL; Future Hemoglobin A1c; Future Hypothyroidism 06/13/2021 Assessment & Plan (04/21/2024 3:02 PM EST): Resume levothyroxine. Return in 6 weeks for blood work. Will adjust levothyroxine dose based on testing Orders: Thyroid stimulating hormone with reflex to free t4 and free t3; Future CBC and differential; Future Comprehensive metabolic panel; Future levothyroxine (SYNTHROID, LEVOTHROID) 75 mcg tablet; levothyroxine 75 mcg every morning Sunday through Sunday and 150 mcg on Sundays Obesity (BMI 30-39.9) 06/13/2021 Assessment & Plan (04/21/2024 3:02 PM EST): Advised to start daily exercise. Continue with dietary changes Will trial Zepbound however it looks like this may cost $400. She will check with her pharmacy. Provided with good Rx card. She will let me know if she is interested in evaluation by weight management for alternative medications Orders: Lipid panel with reflex to direct LDL; Future Hemoglobin A1c; Future tirzepatide, weight loss, (Zepbound) 2.5 mg/0.5 mL injection; Inject 0.5 mL (2.5 mg total) under the skin every 7 (seven) days. 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); Neck fullness; Mild persistent asthma without complication; Seasonal allergic rhinitis, unspecified trigger; Mixed hyperlipidemia; Migraine without status migrainosus, not intractable, unspecified migraine type; Chronic low back pain, unspecified back pain laterality, unspecified whether sciatica present; Osteoarthritis of lumbar spine with myelopathy; Encounter for screening mammogram for malignant neoplasm of breast from Last 3 Months Immunizations Immunization Administration Dates Next Due Influenza Quadravalent, MDCK , 0.5ml, preservative free (Flucelvax) 6mo and older 12/25/2023 Influenza trivalent, with pr eservative (Fluzone; Afluria) 6mo and older 12/31/2020 Influenza, Unspecified 01/07/2023,01/16/2022 PlaySpan SARS-CoV-2 COVID-19, mRNA, LNP-S, preservative free 08/02/2020,07/12/2020 Td Tetanus diptheria (Tdvax) 7yo and older 11/12 Tdap Tetanus diptheria acell ular pertussis (Boostrix; Adacel) 7yo and older 11/22/2020 Surgical History Surgery Date Site/Laterality Comments ANKLE SURGERY Left PROCEDURE: HISTORICAL ANKLE SURGERY HYSTEROSCOPY 05/09/2021 PROCEDURE: WY HYSTEROSCOPY BX ENDOMETRIUM&/POLYPC W/WO D&C; COMMENT: AUB HYSTERECTOMY 07/2021 PROCEDURE: HISTORICAL HYSTERECTOMY Medical History Medical History Date Comments Asthma DX:Asthma Hypothyroidism DX:Hypothyroidis m Depression with anxiety DX:Depre ssion with anxiety Family History Medical History Relation Name Comments Thyroid disease Brother Other: COVID 19 Father Thyroid disease Father in 2019 Hypertension Mother Seizures Mother Thyroid disease Sister Breast cancer Neg Hx Colon cancer Neg Hx Ovarian cancer Neg Hx Relation Name Status Comments Brother Father Mother Alive Sister Social History Tobacco Use Types Packs/Day Years Used Date Smoking Tobacco: Former Cigarettes Q uit: 03/26/2017 Smokeless Tobacco: Never Tobacco Cessation:Counseling Given: Not Answered Alcohol Use Standard Drinks/Week Comments Yes 0 (1 standard drink = 0.6 oz pur e alcohol) Comments No Sex and Gender Information Value Date Recorded Sex Assigned at Not on file Legal Sex Female 9:31 PM EDT Gender Identity Not on file Sexual Orientation Not on file Obstetrics History Last Filed Vital Signs Vital Sign Reading Time Taken Comments Blood Pressure 123/88 12/30/2024 4:26 PM EDT Pulse 75 12/30/2024 4:26 PM EDT Temperature 36.8 C (98.2 F) 12/30/2024 4:26 PM EDT Respiratory Rate 16 12/30/2024 4:26 PM EDT Oxygen Saturation 97% 04/21/2024 1:54 PM EST Inhaled Oxygen Concentration - - Weight 107 kg (235 lb) 12/30/2024 4:26 PM EDT Height 167.6 cm (5' 6 ) 12/30/2024 4:26 PM EDT Body Mass Index 37.93 12/30/2024 4:26 PM EDT Plan of Treatment Upcoming Encounters Date Type Department Care Team (Late st Contact Info) Description 06/30/2025 12:30 PM EDT Office Visit Adult Medicine [address] [phone] Maddie Langford PA [address] [place] [address] Health Maintenance Due Date Last Done Comments Breast Cancer Screening 1984 HPV Vaccines (2 - 3-dose series) 12/11/2007 11/13/2007 Pneumococcal Vaccine: Pediatrics (0 to 5 Years) and At-Risk Patients (6 to 49 Years) (2 of 2 - PPSV23, PCV20, or PCV21) 09/11/2018 07/17/2018 Social Influencers of Health Screening 08/12/2021 Depression Screening 03/26/2024 06/19/2023 Influenza Vaccine (#1) 2025 , 01/10/2023, 01/07/2023, Additional history exists Postponed from 11/24/2024 (Patient Refused) Cervical Cancer Screening: HPV 03/10/2026 03/10/2021 Cholesterol Screening (Lipid Panel) 12/30/2029 12/30/2024, 06/20/2023 DTaP,Tdap,and Td Vaccines (4 - Td or Tdap) 11/22/2030 11/22/2020, 12/20/2015, 11/13/2007 RSV Immunization Adult Patients (1 - 1-dose 75+ series) 08/05/2059 COVID-19 Vaccine Discontinued 08/02/2020, 07/12/2020 HIV Screening Completed 04/12/2023 Hepatitis C Screening Completed 04/12/2023 HIB Vaccines Aged Out No longer eligi ble based on patient's age to complete this topic Hepatitis A Vaccines Aged Out No long er eligible based on patient's age to complete this topic Hepatitis B Vaccines Discontinued IPV Vaccines Aged Out No longer eligi ble based on patient's age to complete this topic MMR Vaccines Aged Out No longer eligi ble based on patient's age to complete this topic Meningococcal ACWY Vaccine Aged Out N o longer eligible based on patient's age to complete this topic Meningococcal B Vaccine Aged Out No l onger eligible based on patient's age to complete this topic RSV Immunization Patients Under 20 months Aged Out No longer eligible based on patient's age to complete this topic Varicella Vaccines Aged Out No longer eligible based on patient's age to complete this topic Procedures Procedure Name Priority Date/Time Associated Diagnosis Comments CBC WITH AUTO DIFFERENTIAL Routine 12/30/2024 4:14 PM EDT Hypothyroidism due to [place]se thyroiditis THYROID STIMULATING HORMONE WITH REFLEX TO FREE T4 AND FREE T3 Routine 12/30/2024 4:14 PM EDT Hypothyroidism due to [place]se thyroiditis CBC AND DIFFERENTIAL Routine 12/30/2024 4:14 PM EDT Hypothyroidism due to [place]se thyroiditis COMPREHENSIVE METABOLIC PANEL Routine 12/30/2024 4:14 PM EDT Hypothyroidism due to [place]se thyroiditis VITAMIN B12 Routine 12/30/2024 4:14 PM EDT Change in nail appearance VITAMIN D 25 HYDROXY Routine 12/30/2024 4:14 PM EDT Change in nail appearance LIPID PANEL WITH REFLEX TO DIRECT LDL Routine 12/30/2024 4:14 PM EDT Obesity (BMI 30-39.9) Mixed hyperlipidemia HEMOGLOBIN A1C Routine 12/30/2024 4:14 PM EDT Obesity (BMI 30-39.9) Mixed hyperlipidemia DEPRESSION SCREENING Routine 06/19/2023 HEPATITIS C SCREENING Routine 04/12/2023 HIV SCREENING Routine 04/12/2023 HPV Routine 03/10/2021 from Last 3 Months or Most Recently Relevant to Health Maintenance Results * Thyroid stimulating hormone with reflex to free t4 and free t3 (12/30/2024 4:14 PM EDT) TSH 3.49 0.40 - 4.00 mcIU/mL LAB CHEMISTRY METHOD 12/30/2024 7:35 PM EDT [facility] Blood Venous blood specimen / Unknown Venipuncture / Unknown 12/30/2024 4:14 PM EDT 12/30/2024 4:14 PM EDT Jacek Hogan MD LAB BLOOD ORDERA BLES Final Result [facility] [address] [place] [address], [place] [phone] * (ABNORMAL) Lipid panel with reflex to direct LDL (12/30/2024 4:14 PM EDT) Cholesterol 201(H) 0 - 200 mg/dL LAB CHEMISTRY METHOD 12/30/2024 7:19 PM [facility] Triglycerides 108 0 - 150 mg/dL LAB CHEMISTRY METHOD 12/30/2024 7:19 PM [facility] HDL 55 >=40 mg/dL LAB CHEMISTRY METHOD 12/30/2024 7:19 PM [facility] LDL Calculated 124(H) 0 - 100 mg/dL LAB CHEMISTRY METHOD 12/30/2024 7:19 PM [facility] Comment:Estimated LDL Calcul ated using equation: Total cholesterol - HDL cholesterol - (Triglycerides/5) VLDL Cholesterol James 21.6 mg/dL LAB CHEMISTRY METHOD 12/30/2024 7:19 PM [facility] Non HDL Chol. (LDL+VLDL) 146(H) <145 mg/dL LAB CHEMISTRY METHOD 12/30/2024 7:19 PM [facility] Chol/HDL Ratio 3.7 0.0 - 4.4 LAB CHEMISTRY METHOD 12/30/2024 7:19 PM [facility] Blood Venous blood specimen / Unknown Venipuncture / Unknown 12/30/2024 4:14 PM EDT 12/30/2024 4:14 PM EDT Jacek Hogan MD LAB BLOOD ORDERA BLES Final Result [facility] [address] [place] [address], [place] [phone] * (ABNORMAL) CBC auto differential (12/30/2024 4:14 PM EDT) [facility] WBC 13.2(H) 4.8 - 10.8 K/mcL LAB HEMETOLOGY METHOD 12/30/2024 6:36 PM EDT [facility] RBC 4.80 3.80 - 4.80 M/mcL LAB HEMETOLOGY METHOD 12/30/2024 6:36 PM EDT [facility] Hemoglobin 14.0 11.5 - 16.0 g/dL LAB HEMETOLOGY METHOD 12/30/2024 6:36 PM EDT [facility] Hematocrit 42.1 35.0 - 47.0 % LAB HEMETOLOGY METHOD 12/30/2024 6:36 PM EDT [facility] MCV 88.3 79.0 - 98.0 FL LAB HEMETOLOGY METHOD 12/30/2024 6:36 PM EDT [facility] MCH 29.4 27.0 - 32.0 pcg LAB HEMETOLOGY METHOD 12/30/2024 6:36 PM EDT [facility] MCHC 33.3 32.0 - 37.0 g/dL LAB HEMETOLOGY METHOD 12/30/2024 6:36 PM EDT [facility] RDW 13.0 11.0 - 15.0 % LAB HEMETOLOGY METHOD 12/30/2024 6:36 PM EDT [facility] Platelets 454(H) 130 - 400 K/mcL LAB HEMETOLOGY METHOD 12/30/2024 6:36 PM EDT [facility] MPV 10.1 7.0 - 11.0 FL LAB HEMETOLOGY METHOD 12/30/2024 6:36 PM EDT [facility] NRBC 0.0 <1.0 % LAB HEMETOLOGY METHOD 12/30/2024 6:36 PM EDT [facility] NRBC Absolute 0.00 <0.10 K/mcL LAB HEMETOLOGY METHOD 12/30/2024 6:36 PM EDT [facility] Neutrophils Relative 57.4 % LAB HEMETOLOGY METHOD 12/30/2024 6:36 PM EDT [facility] Lymphocytes Relative 32.4 % LAB [facility]OLOGY [facility] Monocytes Relative 7.4 % LAB HEMETOLOGY METHOD 12/30/2024 6:36 PM EDT [facility] Eosinophils Relative 1.8 % LAB HEMETOLOGY METHOD 12/30/2024 6:36 PM EDT [facility] Basophils Relative 0.5 % LAB HEMETOLOGY METHOD 12/30/2024 6:36 PM [facility] Immature Granulocytes Relative 0.5 % LAB HEMETOLOGY METHOD [facility] Neutrophils Absolute 7.54(H) 1.50 - 7.00 K/mcL LAB HEMETOLOGY METHOD 12/30/2024 6:36 PM EDT [facility] Lymphocytes Absolute 4.27 1.00 - 5.00 K/mcL LAB HEMETOLOGY METHOD 12/30/2024 6:36 PM EDT [facility] Monocytes Absolute 0.97 0.20 - 1.00 K/mcL LAB HEMETOLOGY METHOD 12/30/2024 6:36 PM EDT [facility] Eosinophils Absolute 0.24 0.00 - 0.50 K/mcL LAB HEMETOLOGY METHOD 12/30/2024 6:36 PM EDT [facility] Basophils Absolute 0.07 0.00 - 0.20 K/[facility] LAB HEMETOLOGY METHOD 12/30/2024 6:36 PM EDT [facility] Immature Granulocytes Absolute 0.07(H) 0.00 - 0.03 K/[facility] LAB HEMETOLOGY METHOD 12/30/2024 6:36 PM EDT [facility] Blood Venous blood specimen / Unknown Venipuncture / Unknown 12/30/2024 4:14 PM EDT 12/30/2024 4:14 PM EDT Jacek Hogan MD LAB BLOOD ORDERA BLES Final Result Performing Organization Address City/[facility]/ZIP Co de Phone Number [facility] [address] [place] [address], [place] [phone] * Vitamin D 25 hydroxy (12/30/2024 4:14 PM EDT) Vit D, 25-Hydroxy 43.7 30.0 - 80.0 ng/mL LAB CHEMISTRY METHOD 12/30/2024 7:35 PM EDT [facility] Blood Venous blood specimen / Unknown Venipuncture / Unknown 12/30/2024 4:14 PM EDT 12/30/2024 4:14 PM EDT Jacek Hogan MD LAB BLOOD ORDERA BLES Final Result [facility] [address] [place] [address], [place] [phone] * Hemoglobin A1c (12/30/2024 4:14 PM EDT) Hemoglobin A1C 5.0 <6.5 % LAB CHEMISTRY METHOD 12/30/2024 7:53 PM EDT [facility] Mean Bld Glu Estim. 97 mg/dL LAB CHEMISTRY METHOD 12/30/2024 7:53 PM EDT [facility] Blood Venous blood specimen / Unknown Venipuncture / Unknown 12/30/2024 4:14 PM EDT 12/30/2024 4:14 PM EDT Jacek Hogan MD LAB BLOOD ORDERA BLES Final Result Performing Organization Address [facility]/ZIP Co de Phone Number [facility] [address] [place] [address], [place] [phone] * Vitamin B12 (12/30/2024 4:14 PM EDT) Pathologist [facility] Vitamin B-12 349 250 - 900 pcg/mL LAB CHEMISTRY METHOD 12/30/2024 7:42 PM EDT [facility] Blood Venous blood specimen / Unknown Venipuncture / Unknown 12/30/2024 4:14 PM EDT 12/30/2024 4:14 PM EDT Jacek Hogan MD LAB BLOOD ORDERA BLES Final Result Performing Organization Address [facility]/ZIP Co de Phone Number [facility] [address] [place] [address], [place] [phone] * Comprehensive metabolic panel (12/30/2024 4:14 PM EDT) Pathologist [facility] Sodium 137 133 - 145 mmol/L LAB CHEMISTRY METHOD 12/30/2024 7:19 PM EDT [facility] Potassium 4.0 3.5 - 5.5 mmol/L LAB CHEMISTRY METHOD 12/30/2024 7:19 PM EDT [facility] Chloride 106 96 - 110 mmol/L LAB CHEMISTRY METHOD 12/30/2024 7:19 PM EDT [facility] CO2 25 21 - 32 mmol/L LAB CHEMISTRY METHOD 12/30/2024 7:19 PM [facility] Anion Gap 6 3 - 11 LAB CHEMISTRY METHOD 12/30/2024 7:19 PM [facility] Glucose 74 70 - 100 mg/dL LAB CHEMISTRY METHOD 12/30/2024 7:19 PM [facility] BUN 13 5 - 25 mg/dL LAB CHEMISTRY METHOD 12/30/2024 7:19 PM [facility] Creatinine 0.74 0.50 - 1.10 mg/dL LAB CHEMISTRY METHOD 12/30/2024 7:19 PM [facility] eGFR 105 >=60 mL/min/1. 73m2 LAB CHEMISTRY METHOD 12/30/2024 7:19 PM [facility] Comment:Calculation based on the Chronic Kidney Disease Epidemiology Collaboration (CKD-EPI) equation refit without adjustment for race. BUN/Creatinine Ratio 17.6 LAB CHEMISTRY METHOD 12/30/2024 7:19 PM [facility] Calcium 9.3 8.5 - 10.5 mg/dL LAB CHEMISTRY METHOD 12/30/2024 7:19 PM [facility] AST (SGOT) 19 10 - 42 unit/L LAB CHEMISTRY METHOD 12/30/2024 7:19 PM [facility] ALT (SGPT) 27 10 - 60 unit/L LAB CHEMISTRY METHOD 12/30/2024 7:19 PM [facility] Alkaline Phosphatase 67 42 - 121 unit/L LAB CHEMISTRY METHOD 12/30/2024 7:19 PM [facility] Total Protein 6.8 6.0 - 8.0 g/dL LAB CHEMISTRY METHOD 12/30/2024 7:19 PM [facility] Albumin 3.6 3.2 - 5.0 g/dL LAB CHEMISTRY METHOD 12/30/2024 7:19 PM [facility] Total Bilirubin 0.3 0.0 - 1.4 mg/dL LAB CHEMISTRY METHOD 12/30/2024 7:19 PM EDT [facility] Blood Venous blood specimen / Unknown Venipuncture / Unknown 12/30/2024 4:14 PM EDT 12/30/2024 4:14 PM EDT Jacek Hogan MD LAB BLOOD ORDERA BLES Final Result [facility] [address] [place] [address], [place] [phone] * Depression Screening (06/19/2023) Pathologist [facility] Depression Screening Abstracted Historical Provider HEALTH MAINTENANCE Final Result * HIV Screening (04/12/2023) [facility] HIV Screening Abstracted Historical Provider HEALTH MAINTENANCE Final Result * Hepatitis C Screening (04/12/2023) [facility] Hepatitis C Screening Abstracted [facility] Provider HEALTH MAINTENANCE Final Result * Cervical Cancer Screening: HPV (03/10/2021) [facility] Cervical Cancer Screening: HPV Negative, Abstracted Historical Provider HEALTH MAINTENANCE Final Result from Last 3 Months or Most Recently Relevant to Health Maintenance Insurance [facility] ([facility]) Care Teams Kiln Tester Relationship Specialty Start Date End Date Jacek Hgoan MD [address] [place] [address] PCP - General Internal Medicine 12/22/21
--- OUTSIDE RECORDS SUMMARY | 2025-01-08 15:41 | XMS_ITS ---
Author Name [facility] Organization Unknown Care Team Organization Name Specialty Phone Email Start Date End Da te [facility] FABIAN FORRESTER Primary Care [email or web address] 11/30/[address] [facility] Jacoby Samaniego Primary Care 07/31/202211/[address] [facility] Edil Nguyen Primary Care 05/31/202210/[address] [facility] Toño Muñoz Primary Care 01/31/2022 4
--- OUTSIDE RECORDS SUMMARY | 2025-01-08 15:41 | XMS_ITS | Encounter Summary ---
Author Organization [facility] Address [address] [place] [address] Care Team Providers Care Ordained Minister Name Role Phone Jacek Hogan MD Primary Care Pr ovider Encounter Details Date Type Department Care Team (Late st Contact Info) Description 01/01/2025 Results Follow-Up [address] [phone] Jacek Hogan MD [address] [place] [address] Social History Tobacco Use Types Packs/Day Years Used Date Smoking Tobacco: Former Cigarettes Q uit: 03/26/2017 Smokeless Tobacco: Never Alcohol Use Standard Drinks/Week Comments Yes 0 (1 standard drink = 0.6 oz pur e alcohol) Comments No Sex and Gender Information Value Date Recorded Sex Assigned at Not on file Legal Sex Female 9:31 PM EDT Gender Identity Not on file Sexual Orientation Not on file documented as of this encounter Plan of Treatment Upcoming Encounters Date Type Department Care Team (Late st Contact Info) Description 06/30/2025 12:30 PM EDT Office Visit Adult [address] [phone] Maddie Langford PA [facility] [place] [address] Scheduled Orders Name Type Priority Associated Diagnoses Orde r Schedule CBC and differential Lab Routine Leukocytosis, unspecified type Expected: 01/22/2025, Expires: 01/01/2026 documented as of this encounter Visit Diagnoses Diagnosis Leukocytosis, unspecified type- Primary documented in this encounter Care Teams Ordained Minister Relationship Specialty Start Date End Date Jacek Hogan MD [address] [place], [place] PCP - General Internal Medicine 12/22/21 documented as of this encounter
--- OUTSIDE RECORDS SUMMARY | 2025-01-08 15:41 | XMS_ITS | Encounter Summary ---
Author Organization [facility] Address [address] [place] [address] Phone Care Team Providers Care Final Armature Tester Name Role Phone Nataliya Pelaez Ann LINING PRESSER Unavailable [phone] Jaki Waterman LINING PRESSER Unavailable Steve Tuttle BARREL RAISER Unavailable Doroteo Marina MD Unavailable [phone] Will Kapadia MD Unavailable Wiliam Rico MD Unavailable Unavailable Enoc Calabrese MD Unavailable [phone] Enoc Calabrese MD Primary Care Provider [phone] Enoc Calabrese MD Unavailable [phone] Encounter Details Date Type Department Care Team (Late st Contact Info) Description 11/19/2017 Ancillary Orders [facility], X-Ray - [address] [id number] Deonna Glynn, LINING PRESSER [address] [place] [address] Pain in left hip Social History Tobacco Use Types Packs/Day Years Used Date Smoking Tobacco: Every Day Cigarettes 0.5 18 Smokeless Tobacco: Never Alcohol Use Standard Drinks/Week Comments No 0 (1 standard drink = 0.6 oz [...] as of this encounter Results * XR HIP 2 VW LEFT PLUS PELVIS (11/19/2017 4:11 PM EDT) Anatomical Region Laterality Modality Hip, Pelvis Radiographic Madeleine ging 11/19/2017 4:17 PM EDT Impressions 11/19/2017 4:18 PM EDT No significant bony abnormality apparent. POS [id number] Narrative 11/19/2017 4:18 PM EDT COMPARISON: 10/03/2016 CT FINDINGS: An AP view of the pelvis and AP neutral and frog-lateral views of the left hip disclose no fracture, subluxation, or other acute bony abnormality. Hip joints are preserved in width. The femoral head articular surface is smooth. No aberrant soft tissue calcifications of significance are identified. Procedure Note Tomas Nichols MD - 11/19/2017 COMPARISON: 10/03/2016 CT FINDINGS: An AP view of the pelvis and AP neutral and frog-lateral views of theleft hip disclose no fracture, subluxation, or other acute bonyabnormality. Hip joints are preserved in width. The femoral headarticular surface is smooth. No aberrant soft tissue calcifications ofsignificance are identified. IMPRESSION: No significant bony abnormality apparent. POS [id number] us Deonna Glynn LINING PRESSER IMG XR PELVIS Fin al Result documented in this encounter Visit Diagnoses Diagnosis Pain in left hip Pain in left hip documented in this encounter Additional Health Concerns Infection Onset Date Last Indicated Resolved Time MRSA Comment:Import to add expiration date of 06/11/2021 per Infection Control as part of historical infection status reconciliation 12/12/2007 12/12/2007 06/12/19 22 1:35 AM EDT documented as of this encounter Care Teams Final Armature Tester Relationship Specialty Start Date End Date Enoc Calabrese MD [address] [place] [address], [address] [place] [address] PCP - General 01/08/17 04/21/24 Nataliya Pelaez, LINING PRESSER [address] [place] [address] [address] [place] [address] Historical LMR Provider 01/08/17 2 Jaki Waterman, NORMA [address] [place] [address] 2_[place] [address] [email or web address] Historical LMR Provider 01/08/17 04/02/21 Steve Tuttle, BARREL RAISER [address] [place] [address], [address] [place] [address] [email or web address] Historical LMR Provider 01/08/17 04/02/21 Doroteo Marina MD [address] [place] [address], [address] [place] [address] Historical LMR Provider 01/08/17 04/02/21 Will Kapadia MD [address] [place] [address], [address] [address] Historical LMR Provider 01/08/17 04/02/21 Wiliam Rico MD Historical LMR Provider 01/08/17 04/02/21 Enoc Calabrese MD [address] [place] [address], [address] [place] [address] [email or web address] Historical LMR Provider 01/08/17 Enoc Calabrese MD [address] [place] [address], [address] [id number] [email or web address] Insurance Assigned Provider 07/27/18 documented as of this encounter Additional Source Comments The information contained in this document represents components of the legal health record. It is not the complete legal health record.[facility]
--- OUTSIDE RECORDS SUMMARY | 2025-01-08 15:41 | XMS_ITS | Encounter Summary ---
Author Organization [facility] Address [address] [place] [address] Phone Care Team Providers Care Substation Operator Helper Generation Name Role Phone Nataliya Pelaez Ann DIRECTOR DRUG SAFETY Unavailable [phone] Jaki Waterman DIRECTOR DRUG SAFETY Unavailable Steve Tuttle SHOW CARD WRITER Unavailable Doroteo Marina MD Unavailable [phone] Will Kapadia MD Unavailable Wiliam Rico MD Unavailable Unavailable Enoc Calabrese MD Unavailable [phone] Enoc Calabrese MD Primary Care Provider [phone] Enoc Calabrese MD Unavailable [phone] Encounter Details Date Type Department Care Team (Late st Contact Info) Description 07/21/2019 Procedure Pass [facility], [address] [place] [address] Social History Tobacco Use Types Packs/Day Years Used Date Smoking Tobacco: Former Cigarettes 0.5 18 0 06/07/1999 - 06/06/2017 Smokeless Tobacco: Never Alcohol Use Standard Drinks/Week [...] on file documented as of this encounter Visit Diagnoses Not on filedocumented in this encounter Additional Health Concerns Infection Onset Date Last Indicated Resolved Time MRSA Comment:Import to add expiration date of 06/11/2021 per Infection Control as part of historical infection status reconciliation 12/12/2007 12/12/2007 06/12/19 22 1:35 AM EDT Assessment Noted Time PHQ-9 Depression Total Score: 18 020 1:07 PM EDT PHQ-2 Depression Total Score: 3 07/31/19 20 1:07 PM EDT documented as of this encounter Care Teams Substation Operator Helper Generation Relationship Specialty Start Date End Date Enoc Calabrese MD [address] [place] [address], [address] [place] [address] PCP - General 01/08/17 04/21/24 Nataliya Pelaez NP [address] [place] [address] [address] [place] [address] Historical LMR Provider 01/08/17 2 Jaki Waterman, NORMA [address] [place] [address] 2_[place] [address] [email or web address] Historical LMR Provider 01/08/17 04/02/21 Steve Tuttle, SHOW CARD WRITER [address] [place] [address], [address] [place] [address] Historical LMR Provider 01/08/17 04/02/21 Doroteo Marina MD [address] [place] [address], [address] [place] [address] Historical LMR Provider 01/08/17 04/02/21 Will Kapadia MD [address] [place] [address], [address] [address] [email or web address] Historical LMR Provider 01/08/17 04/02/21 Wiliam Rico MD Historical LMR Provider 01/08/17 04/02/21 Enoc Calabrese MD [address] [place] [address], [address] [place] [address] [email or web address] Historical LMR Provider 01/08/17 Enoc Calabrese MD [address] [place] [address], [address] [place] [address] [email or web address] Insurance Assigned Provider 07/27/18 documented as of this encounter Additional Source Comments The information contained in this document represents components of the legal health record. It is not the complete legal health record.[facility]
--- OUTSIDE RECORDS SUMMARY | 2025-01-08 15:41 | XMS_ITS | Encounter Summary ---
Author Organization [facility] Address [address] [place] [address] Phone Care Team Providers Care Bone Char Operator Name Role Phone Nataliya Pelaez Ann VARNISHER APPRENTICE Unavailable [phone] Jaki Waterman VARNISHER APPRENTICE Unavailable Steve Tuttle ADOBE BALL MIXER Unavailable Doroteo Marina MD Unavailable [phone] Will Kapadia MD Unavailable Wiliam Rico MD Unavailable Unavailable Enoc Calabrese MD Unavailable [phone] Enoc Calabrese MD Primary Care Provider [phone] Enoc Calabrese MD Unavailable [phone] Encounter Details Date Type Department Care Team (Late st Contact Info) Description 10/16/2017 Procedure Pass [place] Admitting Dept - Virtual Department [address] [place], [place] [id number] Social History Tobacco Use Types Packs/Day Years Used Date Smoking Tobacco: Every Day Cigarettes 0.5 18 Smokeless Tobacco: Never Alcohol Use Standard Drinks/Week Comments No 0 (1 standard drink = 0.6 oz pur e alcohol) Comments Unknown Sex and Gender Information Value [...] historical infection status reconciliation 12/12/2007 12/12/2007 06/12/19 1:35 AM EDT documented as of this encounter Care Teams Bone Char Operator Relationship Specialty Start Date End Date Enoc Calabrese MD [address] [place] [address], [address] [place] [address] PCP - General 01/08/17 04/21/24 Nataliya Pelaez NP [address] [place] [address] [address] [place] [address] Historical LMR Provider 01/08/17 2 Jaki Waterman, NORMA [address] [place] [address] 2_[place] [address] [email or web address] Historical LMR Provider 01/08/17 04/02/21 Steve Tuttle, ADOBE BALL MIXER [address] [place] [address], [address] [place] [address] Historical LMR Provider 01/08/17 04/02/21 Doroteo Marina MD [address] [place] [address], [address] [place] [address] Historical LMR Provider 01/08/17 04/02/21 Will Kapadia MD [address] [place] [address], [address] [place] [address] Historical LMR Provider 01/08/17 04/02/21 Wiliam Rico MD Historical LMR Provider 01/08/17 04/02/21 Enoc Calabrese MD [address] [place] [address], [address] [place] [address] [email or web address] Historical LMR Provider 01/08/17 Enoc Calabrese MD [address] [place] [address], [address] [place] [address] [email or web address] Insurance Assigned Provider 07/27/18 documented as of this encounter Additional Source Comments The information contained in this document represents components of the legal health record. It is not the complete legal health record.[facility]
--- OUTSIDE RECORDS SUMMARY | 2025-01-08 15:41 | XMS_ITS | Clinical Summary ---
Author Organization [facility] Address [address] [place] [address] Phone Care Team Providers Care Apprentice Plant Attendant Name Role Phone Unavailable Primary Care Provider Unavailabl e Allergies No known active allergies Medications omeprazole (PRILOSEC) 20 MG capsuleIndications :Gastroesophageal reflux disease, esophagitis presence not specified Take 1 capsule (20 mg total) by mouth daily. 30 capsule 5 9 Active loratadine-pseudoe phedrine (CLARITIN-D 12 HOUR) 5-120 mg Tb12 Take 1 tablet by mouth every 12 (twelve) hours. Active albuterol (PROAIR HFA) 90 mcg/actuation inhalerIndications :Mild persistent asthma without complication Inhale 2 puffs into the lungs every 4 (four) hours as needed. 1 Inhaler 2 1 Active fluticasone propion-salmeteroL (ADVAIR DISKUS) 250-50 mcg/dose DISKUSIndications: maintenance therapy for asthma,did not tolerate generic Inhale 1 puff into the lungs 2 (two) times a day. Indications: controller medication for asthma, did not tolerate generic 1 each 11 1 Active SUMAtriptan (IMITREX) 50 MG tabletIndications: Migraine with aura and without status migrainosus, not intractable TAKE 1 TABLET BY MOUTH EVERY 2 HOURS NEEDED FOR MIGRAINE 9 tablet 1 Active levothyroxine (SYNTHROID, LEVOTHROID) 75 MCG tabletIndications: Acquired hypothyroidism TAKE 1 TABLET BY MOUTH EVERY MORNING 90 tablet 1 2 Active sertraline (ZOLOFT) 50 MG tabletIndications: Anaclitic depression Take 1.5 tablets (75 mg total) by mouth daily. 135 tablet 2 Active Active Problems Problem Noted Date Diagnosed Date Migraine with aura and witho ut status migrainosus, not intractable 06/16/2020 Assessment & Plan (06/16/2020 2:55 PM EDT): Hx of migraine, sumatriptan weekly, worse with menses, see neuro. Dr. Calderon did not feel meningioma was causing headaches, no mass effect. Repeat MR recommended on follow up CT ordered at [facility] by neurosurgery. Findings appear benign, interested to hear Dr. Schilling's view of findings. Anxiety 01/25/2018 Assessment & Plan (06/16/2020 2:52 PM EDT): Stable anxiety on sertraline 75 mg daily. Continue current. Rhinitis medicamentosa 01/25/2018 Sacro-iliac pain 08/24/2017 Assessment & Plan (08/26/2017 9:40 PM EDT): Recommend discussing sacro-iliac support belt with PT, this may be getting addressed already Left lower quadrant pain 08/24/2017 Assessment & Plan (08/26/2017 9:39 PM EDT): SImple cyst on left not cause of pain; I am concerned that the back pain and sacroilitis is primary cause of pain; however, agree to proceed with laparoscopy to assess for possible endometriosis. Risks of surgery discussed, also that there is 50% chance of not identifying cause of pain, she expresses understanding, still would like to proceed Menometrorrhagia 07/31/2017 Overview (07/31/2017): discuss further with [facility] CONSULT[facility], further workup may be needed. Assessment & Plan (10/03/2020 8:44 PM EDT): Recommend pelvic ultrasound to assess further. She has not been able to get her study due to continued menstrual flow. Assessment & Plan (06/16/2020 2:56 PM EDT): See [facility] CONS[facility] first, offered endo evaluation, would like to see [facility] CONS[facility] in [place] and then reassess. She agrees to follow up with me after that consultation. Assessment & Plan (08/01/2019 8:52 AM EDT): Discussed today with Dr. Harrell, who advised patient to have her nexplanon out as it may be the cause of her heavy irregular menstrual flow. She had not followed up on this previously. The plan was to remove Nexplanon, then perform vaginal ultrasound to confirm normal pelvic anatomy prior to scheduling endometrial ablation, tubal ligation. She has not responded to or tolerated other forms of control previously. Greater trochanteric bursitis of left hip 2017 Overview (07/31/2017): recommended cortisone shot for left trochanteric bursitis which she declines. Allergic rhinitis 06/22/2017 Asthma 06/22/2017 Assessment & Plan (10/03/2020 8:45 PM EDT): Stable, continue current regimen. Assessment & Plan (06/16/2020 2:52 PM EDT): Not controlled without LABA/ICS, not responding to antihistamines. Tolerated advair in the past. ERx for generic sent as she has new insurance. 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 Assessment & Plan (06/16/2020 2:53 PM EDT): Due for labs, continue current, doubt related to menorrhagia. Insomnia 06/22/2017 Palpitations 06/22/2017 PCOS (polycystic ovarian syndrome) 06/22/2017 Resolved Problems Problem Noted Date Diagnosed Date Resolved Date Nipple discharge in female 08/01/2019 0 08/01/2019 Overview (08/01/2019): very likely due to trauma. normal labs. Cyst of left ovary 07/31/2017 8 Overview (08/26/2017): 3.5 x 3.2 cm cyst of left ovary is only other source of pain, noted tenderness. No bowel or hip pathology other than trochanteric bursitis. 2.9 x 2.9 cm simple cyst , which is VERY unlikely source of pain for a year; was not present on August 2016 u/s; will have laptami to assess for endometriosis- RAP Tobacco use disorder 06/22/2017 019 Immunizations Immunization Administration Dates Next Due COVID-19 (Pre-01/15) Pfizer Vaccine, mRNA, PF ,07/12/2020 HPV, unspecified formulation 11/13/2007 INFLUENZA, SPLIT VIRUS, TRIVALENT PF 12/20/2015 Influenza Quadrivalent Preservative Free IM 05/2018,12/15/2017 Pneumococcal conjugate PCV13 07/17/2018 Td, unspecified formulation 11/13/2007 Tdap 12/20/2015 Family History Medical History Relation Comments Hypothyroidism Brother 1 Liver disease Brother 1 Depression Brother 2 lives in [place] a Bipolar disorder Father Dementia Father Hypothyroidism Father Multiple sclerosis Father Subdural hematoma Father Suicidality Father Cancer Maternal Grandfather Hodgkins lymphoma Maternal Grandfather Cancer Maternal Grandmother Joe's disease Maternal Grandmother Menopausal syndrome Mother Psychiatric disorder Mother suspected p er patient Seizures Mother Irritable bowel syndrome Sister Relation Status Comments Brother 1 Alive Brother 2 Alive Father (Age 55) Maternal Grandfather Maternal Grandmother Mother Alive Sister Alive Social History Tobacco Use Types Packs/Day Years Used Date Smoking Tobacco: Former Cigarettes 0.5 18 0 06/07/1999 - 06/06/2017 Smokeless Tobacco: Never Tobacco Cessation:Ready to Q uit: Yes; Counseling Given: Yes Alcohol Use Standard Drinks/Week Comments No 0 (1 standard drink = 0.6 oz pur e alcohol) Child or Family Care Answer Date Record ed Do you have problems with on e of the following making it difficult for you to work, study, or receive health care? No 10/01/2020 Education Answer Date Recorded Are you interested in more education? Not on antelmo e 10/03/2022 Are you concerned about learning? Not on file 10/03/2022 No 10/03/2022 No 10/03/2022 Food Answer Date Recorded Within the past 6 months we worried whether our food would run out before we got money to buy more. Sometimes True 021 Within the past 6 months the food we bought just didn't last and we didn't have enough money to get more. Sometimes True 11/2020 Residential Stability Answer Date Recor ded What is your housing situation today? I have max [place] 10/01/2020 How many times have you move d in the past 12 months? Zero (I did not move) 10/01/2020 06 Are you worried that in t he next 2 months, you may not have your own housing to live in? No 10/01/2020 Paying for Meds Answer Date Recorded Do you have trouble paying for medicines? Yes 10/01/2020 Paying Utility Bills Answer Date Record ed Do you have trouble paying your heating or elect ricity bill? No 10/01/2020 Transportation Answer Date Recorded Has the lack of transportati on kept you from medical appointments or from getting medications? Yes 10/01/2020 Unemployment Answer Date Recorded Are you currently unemployed or working on a part-time or temporary basis, and looking for work? Yes 10/01/2020 Digital Access Answer Date Recorded No 08/18/2022 No 08/18/2022 Reliable internet access at home? Not on file 08/18/2022 Device with a working camera? Not on file Comments No Sex and Gender Information Value Date Recorded Sex Assigned at Female 2021 8:45 PM EDT Legal Sex Female 9:15 PM EDT Gender Identity Female 2021 8:45 PM EDT Sexual Orientation Straight 2021 8: 45 PM EDT Last Filed Vital Signs Vital Sign Reading Time Taken Comments Blood Pressure 140/85 11/17/2020 3:34 PM EDT Pulse 106 11/17/2020 3:34 PM EDT Temperature 37.4 C (99.3 F) 11/17/2020 3:34 PM EDT Respiratory Rate 16 11/17/2020 3:34 PM EDT Oxygen Saturation 97% 11/17/2020 3:34 PM EDT Inhaled Oxygen Concentration - - Weight 113.9 kg (251 lb 3.2 oz) 10/01/2020 4:24 PM EDT Height 166.6 cm (5' 5.59 ) 11/15/2020 2:53 PM ED T Body Mass Index 41.05 10/01/2020 4:24 PM EDT Plan of Treatment Health Maintenance Due Date Last Done Comments SMOKING Hx and SMOKELESS TOBACCO SCREENING 1997 HEPATITIS C SCREENING 2002 HIV ONE-TIME SCREENING (18-65 YEARS) 2002 PNEUMOCOCCAL VACCINES (0-49 years) (2 of 2 - PPSV23) 09/11/2018 07/17/2018 PAP SMEAR 05/25/2019 05/24/2018, 11/09/2015 TSH LEVEL 07/21/2021 07/21/2020, 05/25, 07/17/2019, Additional history exists DEPRESSION SCREENING 10/01/2021 10/01/2020, 07/31/19 20 MAMMOGRAM 2024 INFLUENZA VACCINE (#1) 2024 9, 12/15/2017, 12/20/2015 COVID-19 VACCINE ( season) 2024 08/02/2020, 07/12/2020 Adult Td,Tdap Booster 12/19/2025 12/20/2015, 008 HEPATITIS A VACCINES Aged Out No long er eligible based on patient's age to complete this topic HIB VACCINES Aged Out No longer eligi ble based on patient's age to complete this topic MENINGOCOCCAL VACCINES (ACWY) Aged Out No longer eligible based on patient's age to complete this topic MENINGOCOCCAL VACCINES (B) Aged Out N o longer eligible based on patient's age to complete this topic Medical Devices Implanted Type Area Software Sales Device Identifier Shelf Expiration Date Model / Serial / Lot Left Foot Hardware Procedures Procedure Name Priority Date/Time Associated Diagnosis Comments TSH WITH REFLEX Routine 07/21/2020 3:10 PM EDT Acquired hypothyroidism HM PAP SMEAR FOR RESULT ENTRY ONLY Routine 05/24/2018 from Last 3 Months or Most Recently Relevant to Health Maintenance Results * TSH with reflex (07/21/2020 3:10 PM EDT) TSH 2.07 0.27 - 4.20 uIU/mL [facility] Blood 07/21/2020 3:10 PM EDT 07/21/2020 3:11 PM EDT us Enoc Calabrese MD LAB BLOOD ORDERABLES Final Res ult [address] [address] * PAP SMEAR FOR RESULT ENTRY ONLY (05/24/2018) us Historical Provider HEALTH MAINTENANCE Edited Result - Final from Last 3 Months or Most Recently Relevant to Health Maintenance Advance Directives For more information, please contact: [phone] (9AM - 5PM [facility], Sunday-Sunday) Documents on File Type Date Recorded Patient Barrel Dedenting Machine Operator Expl anation Healthcare Proxy 10/17/2017 9:43 AM * Full Code (Presumed) (Latest Code Status on File) Date Activated Date Inactivated Comments 10/16/2017 10:04 AM 10/16/2017 5:56 PM Additional Source Comments The information contained in this document represents components of the legal health record. It is not the complete legal health record.[facility]
--- OUTSIDE RECORDS SUMMARY | 2025-01-08 15:41 | XMS_ITS | Clinical Summary ---
Author Organization [facility] Address [address] [place] [address] Care Team Providers Care Progress Clerk Name Role Phone Unavailable Primary Care Provider Unavailabl e Allergies No known active allergies Medications Medication Sig Dispensed Refills Start Date End Date Status albuterol 108 (90 Base) MCG/ACT inhaler Inhale 2 puffs into the lungs every 4 (four) hours as needed. 0 10/01/2020 Active fluticasone-salmeterol (ADVAIR) 250-50 MCG/DOSE DISKUS Inhale 1 puff into the lungs. 0 10/01/2020 Active levothyroxine (SYNTHROID) tablet 75 mcg 0 03/31/2021 Active sertraline (ZOLOFT) 50 MG tablet 0 04/03/2021 Active SUMAtriptan (IMITREX) 50 MG tablet Take 1 tablet by mouth every 2 (two) hours as needed. 0 02/23/2021 Active Active Problems Problem Noted Date Diagnosed Date Bleeding disorder 04/13/2021 Family history of bleeding disorder in mother Family History Medical History Relation Name Comments Thyroid disease Brother Thyroid disease Father Hypertension Mother Cancer Paternal Uncle Thyroid disease Sister Relation Name Status Comments Brother Father Mother Paternal Uncle Sister Social History Tobacco Use Types Packs/Day Years Used Date Smoking Tobacco: Former Cigarettes Q uit: 04/12/2016 Smokeless Tobacco: Never Alcohol Use Standard Drinks/Week Comments Yes 0 (1 standard drink = 0.6 oz pur e alcohol) SOCIALLY Sex and Gender Information Value Date Recorded Sex Assigned at Not on file Gender Identity Not on file Sexual Orientation Not on file Last Filed Vital Signs Vital Sign Reading Time Taken Comments Blood Pressure 139/86 04/12/2021 11:10 AM EST Pulse 90 04/12/2021 11:10 AM EST Temperature 37 C (98.6 F) 04/12/2021 11:10 AM EST Respiratory Rate - - Oxygen Saturation 97% 04/12/2021 11: 10 AM EST Inhaled Oxygen Concentration - - Weight 121.8 kg (268 lb 9.6 oz) 022 11:10 AM EST Height 167.6 cm (5' 6 ) 04/12/2021 11:1 0 AM EST Body Mass Index 43.35 04/12/2021 11:10 AM EST Plan of Treatment Health Maintenance Due Date Last Done Comments Hepatitis B Vaccines (1 of 3 - 3-dose series) 1984 Hepatitis C Screening 1984 Depression Screening 1996 Preventative Health Evaluation 2002 Cervical Cancer Screening (Pap Smear) 2005 COVID-19 Vaccine (2024-2 6 season) 2024 08/02/2020, 07/12/2020 Influenza Vaccine (#1) 2024 , 12/26/2018, 12/15/2017 DTap / Tdap / Td (3 - Td or Tdap) 11/22/2030 11/22/2020, 12/20/2015, 11/13/2007 Pneumococcal Vaccine Aged Out 07/17/2018 No long er eligible based on patient's age to complete this topic RSV Ped < 20 months Aged Out No longe r eligible based on patient's age to complete this topic
== END 2025-01-08 13:48 | disposition home or self-care (01) ==
PROVIDERS: PCP Family Medicine; Visit Provider Nurse Practitioner Family
DX: H00.014 Hordeolum externum left upper eyelid (principal)

== ENCOUNTER 2025-02-09 14:53 | Outpatient (AMB) | payer BC, SELFPAY ==
[2025-02-09 15:21] VITALS: BMI 37.8
--- NOTE | 2025-02-09 15:21 | A.PHYSOV_ITS ---
Vital Signs 02/09/25 15:21 Height 5 ft 6 in Weight 234 lb BMI 37.8 Intake Visit Reasons: 3M FUV Intake Note: Patient is a 39 year old female here for left bursa injection. Male Impersonator Required: No Allergies No Known Allergies (No Known Allergies*) Allergy (Verified 02/09/25 15:23) [facility] Medical History (Updated 02/09/25 @ 16:30 by ARMAAN Hardin) Hordeolum externum left upper eyelid Back pain Asthma Anxiety Depression Hypothyroid Surgical History (Updated 02/09/25 @ 15:24 by Leydi Worrell MA) History of ankle surgery H/O: hysterectomy Social History (Updated 02/09/25 @ 15:25 by Leydi Worrell MA) Alcohol intake: current Alcohol intake frequency: holidays/special occasions only Patient Tobacco Use Status: Former Tobacco user Physical Exam Vital Signs: BMI result Body Mass Index 37.8 Office Procedures AMB Hip Injection AMB Hip Injection Procedure Details: Left Greater trochanteric bursal injection: The risks, benefits and c omplications of the left greater trochanteric bursitis/gluteal tendinopathy were discussed with the patient, including but not limited to infection, increased serum glucose, nerve damage, bleeding and pain. All questions were answered to the patient's satisfaction. Verbal consent was obtained. The patient was eager to proceed. Patient was cleansed with Betadine, ethyl chloride was then used to desensitize the skin. Using an a 25-gauge needle 40 mg of Kenalog and 3 mL 2% lidocaine were injected over the greater trochanter of maximal tenderness. The patient tolerated the procedure well without immediate complication. Postinjection instructions were given. Hip (Bursa) Injection - : Left All charges added?: Procedure code (CPT) selection complete Office Meds Kenalog 40 mg/mL suspension for injection Performing Provider: ARMAAN Hardin Performing Location: [facility] Administered by: ARMAAN Hardin on 02/09/25 16:31 Dose Route Admin Location Dispensed Lot Number Expiration Date NDC Yarn Cleaner 40 mg intra-articular 1 mL [id number] [employer] Total Dispensed Waste 1 mL 0 % lidocaine (PF) 20 mg/mL (2 %) injection solution Performing Provider: ARMAAN Hardin Performing Location: [facility] Administered by: ARMAAN Hardin on 02/09/25 16:31 Dose Route Admin Location Dispensed Lot Number Expiration Date NDC Yarn Cleaner 60 mg intra-articular 50 mL [id number] Total Dispensed Waste 50 mL 0 % Assessment & Plan Assessment & Plan (1) Trochanteric bursitis of left hip: Code(s): M70.62 - Trochanteric bursitis, left hip Category: Medical Plan Ms. Deluca is a 39-year-old female seen in evaluation today for left hip bursitis. Today she consented for left hip bursal injection. She was given post-injection recommend: Moist heat compresses for 15 multiple 5 times daily. Continue abduction exercises. Patient has seen good relief compound cream. She is requesting a refill which I will prescribe day. Follow-up in our office 3 months as needed. Thank you for allowing me to participate in the care of your patient. Orders: Orders AMB Hip/Bursa Injection Today M70.62 - Trochanteric bursitis, left hip Coding Level of Care Code Procedure Only Diagnoses Trochanteric bursitis of left hip M70.62 CPT Codes AMB Hip Injection - Hip/Bursa Injection - 27552: Left ([id number])
== END 2025-02-09 15:47 | disposition home or self-care (01) ==
LOC: HO.HPHYS 14:53
PROVIDERS: PCP Family Medicine; Visit Provider Physician Assistant
DX: M70.62 Trochanteric bursitis, left hip (principal)
CPT/HCPCS: 20610

== ENCOUNTER → 2025-02-09 14:53 | Outpatient (BNVA) | payer BC, SELFPAY | PROVIDERS: PCP Family Medicine; Visit Provider Physician Assistant | DX: M70.62 Trochanteric bursitis, left hip (principal) | CPT/HCPCS: 20610; J2003; J3301 ==